=== PATIENT | male | born 1950 | race Caucasian/White ===

== ENCOUNTER → 2016-11-03 | Day surgery (SDC) | payer MEDICARE ==
[~2016-11-03] MED LIST: BUPIVACAINE 0.25%-EPINEPHRINE 1:200,000 30 ML ONE; CEFAZOLIN 1 GM VIAL ONE; EPHEDrine 50 MG/ML VIAL IM ONE; FENTANYL 100 MCG/2 ML VIAL IV PRN; FENTANYL 250 MCG/5 ML VIAL IV ONE; HYDROmorphone 1 MG INJECTION IV PRN; LABETALOL 20 MG/4 ML SYRINGE IV PRN; LIDOCAINE 100 MG PFS IV ONE; MEPERIDINE 25 MG/ML TUBEX IV PRN; MIDAZOLAM 2 MG/2 ML VIAL IV ONE; ONDANSETRON HCL 4 MG ODT TAB PO PRN; ONDANSETRON HCL 4 MG/2 ML VIAL IV ONE; ONDANSETRON HCL 4 MG/2 ML VIAL IV PRN; PROPOFOL 200 MG/20 ML VIAL IV ONE; hydrALAZINE 20 MG/ML VIAL IV PRN
--- NOTE | 2016-11-03 08:56 | HIM.ANES ---
Anesthesia Evaluation & Plan Diagnoses: PAIN IN RIGHT ELBOW (11/03/16) Consented Procedure: RIGHT OPEN DISTAL BICEP TENDON REPAIR AND OTHER PROCEDURES INDICATED Surgeon:: Brendan Sotomayor - Focused Review of Systems Cardiac History: Yes: Hx Hypertension, Hx Cardiac Catheterization (2006), Hx Coronary Stent (2006, on Plavix last took 10/28/16), Hx Cardiac Disorders, Hx Abnormal Cholesterol/Hyperlipidemia HEENT: No: Other HEENT Problems Respiratory: No: Hx Asthma Gastrointestinal: Yes: Hx Gastroesophageal Reflux Disease (DIET CONTROLLED), Hx Gastrointestinal Disorders, Hx Colonoscopy (2010) Neurological/Musculoskeletal: No: Hx Neurological Disorders Psychological: No Hx Mental/Emotional Disorders Blood/Autoimmune: No: Hx AIDS, Hx Hepatitis (type) Smoking Status: Never smoker Hx Stress Test (date): Yes (01/2011 NO ISCHEMIA EF 50%) Other Surgical History: CIRCUMCISION 1970 - Focused Physical Exam NPO since: 11/02/160 Mallampati: Class II Thyromental Distance: Greater than 3 Neck: Full Range of Motion Cardiovascular/Chest: Normal (RRR no mumurs or rubs.) Respiratory: Lungs clear. negative: Rhonchi, Wheezing Any problems with anesthesia, including nausea and vomiting?: No Any relatives with a history of Malignant Hyperthermia?: No Does patient have a history of Malignant Hyperthermia?: No Beta Matt given (if appropriate): N/A Does the patient have a history of Motion Sickness-: No Other: Allergies Allergy/AdvReac Type Severity Reaction Status Date / Time No Known Allergies Allergy Verified 11/03/16 07:35 Home Medications Medication Instructions Recorded Last Taken Type Aspirin [Aspirin EC] 81 mg PO DAILY 10/30/16 10/30/16 History Atorvastatin Calcium [Lipitor] 40 mg PO HS 10/30/16 11/02/16 History Clopidogrel Bisulfate [Plavix] 75 mg PO DAILY 10/30/16 10/29/16 History Lisinopril 20 mg PO DAILY 10/30/16 11/03/16 05:00 History Ubidecarenone [Co Q-10] 60 mg PO DAILY 10/30/16 11/02/16 History Height and Weight Patient's height 5 ft 9 in Patient's weight 83.915 kg Vital Signs Temperature 96.9 F L 11/03/16 07:37 Pulse Rate 60 11/03/16 07:37 Respiratory Rate 18 11/03/16 07:37 Blood Pressure 154/80 11/03/16 07:37 Pulse Oxygen Saturation 98 11/03/16 07:37 METS - Level of Activity: Climbing stairs(1 flight),walking level ground, running short distance - Anesthetic Plan Anesthesia Type: General ASA Class: 3 -: I have examined this patient and reviewed the medical record. The patient has been assessed prior to anesthesia. Risks and benefits of anesthesia and anesthetic technique options have been discussed and all questions answered. The patient accepts the risk and desires me to proceed with the planned anesthetic.
--- NOTE | 2016-11-03 11:04 | HIMOPRPT ---
PREOPERATIVE DIAGNOSES: Right distal biceps tendon rupture. POSTOPERATIVE DIAGNOSES: Right distal biceps tendon rupture. PROCEDURE: Open right distal biceps tendon repair. FINDINGS: Tendinopathy of the distal biceps tendon with complete rupture and proximal retraction. SPECIMENS REMOVED: 1 cm of distal biceps. ESTIMATED BLOOD LOSS: Less than 25 cc. ANESTHESIA: General. COMPLICATIONS: None. IMPLANTS: 1-biceps button; 7 x 10 mm Bio[employer]posite interference screw TT: None SURGEON: Brendan Sotomayor MD. [employer] OFFICER: DONNIE Bucio. SIGNIFICANT HISTORY, INDICATIONS, AND CONSENT: Daniel is a 65-year-old right- hand-dominant male, status post right distal biceps injury after feeling a pop in his elbow while lifting a heavy item from a truck bed.. The patient presented to our office, and after discussing risks, benefits, alternatives at length the patient wished to proceed with surgical intervention in order to potentially improve function and strength of right upper extremity. Consent was obtained. OPERATION IN DETAIL: The patient was seen in the preop holding area. The right upper extremity was signed. Consent was reviewed. Questions were answered. H and P updated. SCDs placed in bilateral lower extremities. The patient was taken to the operating room, placed in supine position on the operating table. Anesthesia placed monitoring devices and performed LMA intubation. Upper extremity was placed on an arm board, being careful to pad all bony prominences. Upper extremity was then sterilely prepped and draped in usual orthopedic fashion. The patient received prophylactic antibiotics. Time-out was performed. Consensus reached amongst participants in the OR suite. Next, an incision approximately 5 cm in length transverse, approximately 3 cm distal to the antecubital crease was made sharply through skin. Careful dissection was performed deep in order to avoid injury to the lateral antebrachial cutaneous nerve. The interval between the brachioradialis and the pronator was employed to identify our radial tuberosity which was carefully visualized with careful retraction radially in order to avoid injury to the posterior interosseous nerve. Next, a guide pin was inserted uni-cortically and confirmed to be in acceptable position under fluoroscopy. This was then drilled through the distal cortex and over reamed with a 8.5 mm Reamer. We then identified the distal biceps tendon proximally with careful blunt dissection above the fascia to identify the biceps tendon which was encased in scar tissue and retracted approximately 2-3 cm. The tendon was carefully freed of adhesions with hemostasis performed Bovie cautery. Approximately 1-1/2 cm of the distal biceps was excised sharply removing the tendinopathy from the distal tendon. A fiber loop suture was then employed to perform a whipstitch on the distal end of the tendon and sutures were passed through a biceps button in standard fashion. Next the button was passed through our distal cortex and flipped. The biceps was then brought into the previously created tunnel and sutured onto itself using a free needle. As this was held in place a 7 x 10 mm interference screw was placed pushing the biceps ulnarly. Once placed radiographic confirmation of our button placement was performed. The wound was thoroughly irrigated, closed with 2-0 Monocryl for subcu closure and 3-0 Monocryl for subcuticular closure. Steri-Strips and Mastisol were placed. Sterile soft tissue dressing was placed. The patient was placed in a simple sling. The patient was then aroused by Anesthesia and taken to postanesthesia care unit in stable condition. PLAN: The patient will be discharged home when okay with Anesthesia. Prescriptions will be given for p.r.n. pain, constipation, sleeplessness, nausea , vomiting. The patient will return to clinic postop day 10 for suture removal and wound check. We will begin immediate gentle active range of motion elbow.
[2016-11-03 13:47] VITALS: TEMP 97
[2016-11-03 14:08] VITALS: PULSE 71
[2016-11-03 14:51] VITALS: BP 152/89
--- NOTE | 2016-11-03 14:51 | SC.ANESPOS ---
Post-Anesthesia Note LOC: Fully Awake Post-Anesthesia Assessment: Awake, Returned to Baseline, Hemodynamically Stable , Pain Control Adequate Phase I & II Recovery Complete: Yes Apparent Anesthesia Complication: No : N - Vital Signs Blood Pressure: 152/89 Pulse: 71 Resp Rate: 16 O2 Sat: 98 Temp: 97 F
== END ==
LOC: SDC 07:05
PROVIDERS: ATTEND Orthopaedic Surgery
PROC: 0LM Tendons, Reattachment (ICD-10-PCS; principal; 2016-11-03 08:45)
DX: M66.821 Spontaneous rupture of other tendons, right upper arm (principal); I10 Essential (primary) hypertension; E78.00 Pure hypercholesterolemia, unspecified; K21.9 Gastro-esophageal reflux disease without esophagitis; Z95.5 Presence of coronary angioplasty implant and graft; Z79.899 Other long term (current) drug therapy
CPT/HCPCS: 24342; J0690; J2001; J2405; J2550; J3010; J3490; J2250